=== PATIENT | male | born 1970 | race American Indian/Alaskan Native ===

== ENCOUNTER 2016-03-16 12:07 | Emergency (ER) | payer SELFPAY ==
[2016-03-16 17:03] VITALS: BP 166/98
== END 2016-03-16 17:11 | disposition left against medical advice (07) ==
LOC: ED 12:07
DX: R22.0 Localized swelling, mass and lump, head (principal); F17.200 Nicotine dependence, unspecified, uncomplicated; F12.90 Cannabis use, unspecified, uncomplicated; Z53.21 Procedure and treatment not carried out due to patient leaving prior to being seen by health care provider

== ENCOUNTER 2019-03-19 08:39 | Emergency (ER) | payer SELFPAY ==
[2019-03-19 08:55] VITALS: BP 146/101
--- NOTE | 2019-03-19 12:03 | Emergency Department Report ---
ED ENT HPI - General Chief complaint: Dental/Oral Stated complaint: RT SIDE JAW SWELLING/PAIN Time Seen by Provider: 03/19/19 11:59 Source: patient Mode of arrival: Ambulatory Limitations: No Limitations - History of Present Illness Initial comments: 48-year-old -[place] male presents to the emergency room for swelling to the right side of face since yesterday. Patient reports is not aware of any bad teeth. Patient has no S medical history he does smoke and drink alcohol. Patient reports he took ibuprofen and BC last dose about 5:55 AM. MD complaint: tooth pain Onset/Timin -: days(s) Location: tooth # (28) Severity scale (0 -10): 8 Quality: aching, sharp Consistency: constant Improves with: none Worsens with: none Context- Dental: history of dental caries Associated Symptoms: gum swelling, toothache - Related Data Previous Rx's Medication Instructions Recorded Last Taken Type Clindamycin [Clindamycin CAP] 300 mg PO Q8H #30 cap 03/19/19 Unknown Rx Allergies Allergy/AdvReac Type Severity Reaction Status Date / Time No Known Allergies Allergy Unverified 03/16/16 12:33 ED Dental HPI - General Chief complaint: Dental/Oral Stated complaint: RT SIDE JAW SWELLING/PAIN Time Seen by Provider: 03/19/19 11:59 Source: patient Mode of arrival: Ambulatory Limitations: No Limitations - Related Data Previous Rx's Medication Instructions Recorded Last Taken Type Clindamycin [Clindamycin CAP] 300 mg PO Q8H #30 cap 03/19/19 Unknown Rx Allergies Allergy/AdvReac Type Severity Reaction Status Date / Time No Known Allergies Allergy Unverified 03/16/16 12:33 ED Review of Systems ROS: Stated complaint: RT SIDE JAW SWELLING/PAIN Other details as noted in HPI Comment: All other systems reviewed and negative ED Past Medical Hx - Past Medical History Previous Medical History?: No - Surgical History Past Surgical History?: No - Social History Smoking Status: Current Every Day Smoker Substance Use Type: Alcohol, Marijuana - Medications Home Medications: Home Medications Medication Instructions Recorded Confirmed Last Taken Type Clindamycin [Clindamycin CAP] 300 mg PO Q8H #30 cap 03/19/19 Unknown Rx ED Physical Exam - General Limitations: No Limitations General appearance: alert, in no apparent distress - Head Head exam: Present: atraumatic, normocephalic - Eye Eye exam: Present: normal appearance - Expanded ENT Exam Expanded Teeth exam: Present: dental tenderness # (28), gingival enlargement, other (right side jaw swelling and tenderness) - Neurological Exam Neurological exam: Present: alert, oriented X3, normal gait - Psychiatric Psychiatric exam: Present: normal affect, normal mood ED Course Vital Signs 03/19/19 08:53 Temperature 97.7 F Pulse Rate 73 Respiratory 16 Rate Blood Pressure 146/101 O2 Sat by Pulse 98 Oximetry ED Medical Decision Making - Medical Decision Making 48-year-old -[place] male presents to the emergency room for swelling to the right side of face since yesterday. Patient reports is not aware of any bad teeth. Patient has no S medical history he does smoke and drink alcohol. Patient reports he took ibuprofen and BC last dose about 5:55 AM. Patient be placed on clindamycin and ibuprofen for pain management. Patient is to follow-up with the dentist I will list several and when his discharge summary. Critical care attestation.: If time is entered above; I have spent that time in minutes in the direct care of this critically ill patient, excluding procedure time. ED Disposition Clinical Impression: Dental abscess Disposition: DC-01 TO HOME OR SELFCARE Is pt being admited?: No Does the pt Need Aspirin: No Condition: Stable Instructions: Dental Abscess (ED) Additional Instructions: Take [id number] ibuprofen 600 mg every 6-8 hours for pain management. Complete antibiotics as prescribed. Follow-up with a dentist I have listed several below for your convenience. Prescriptions: Clindamycin [Clindamycin CAP] 300 mg PO Q8H #30 cap Referrals: PRIMARY CARE, [Primary Care Provider] - 3-5 Days [facility] [Outside] - 3-5 Days [facility] [Outside] - 3-5 Days [facility] [Outside] - 3-5 Days
== END 2019-03-19 12:18 | disposition home or self-care (01) ==
LOC: ED 08:39
DX: K04.7 Periapical abscess without sinus (principal); F17.200 Nicotine dependence, unspecified, uncomplicated; F12.10 Cannabis abuse, uncomplicated; Z79.899 Other long term (current) drug therapy